=== PATIENT | female | born 1960 | race Caucasian/White ===

== ENCOUNTER 2016-08-16 12:12 | Emergency (ER) | payer OTHER | END 2016-08-16 16:10 | disposition home or self-care (01) | LOC: ER 12:12 | DX: K85.90 Acute pancreatitis without necrosis or infection, unspecified (principal); I10 Essential (primary) hypertension; E11.9 Type 2 diabetes mellitus without complications; Z79.899 Other long term (current) drug therapy | CPT/HCPCS: 36415; 96361; 96374; J1885 ==